=== PATIENT | female | born 1930 | race Caucasian/White ===

== ENCOUNTER 2019-01-28 15:48 | Inpatient (IN) | payer MEDICARE, BC | END 2019-01-31 15:40 | disposition home or self-care (01) | LOC: ER 15:48 → ED HOLD 20:35 → PCU 3S 22:00 | DX: I50.33 Acute on chronic diastolic (congestive) heart failure (principal); J18.9 Pneumonia, unspecified organism; G93.41 Metabolic encephalopathy; N39.0 Urinary tract infection, site not specified; E87.2 Acidosis ==